=== PATIENT | male | born 1930 | race Caucasian/White ===

== ENCOUNTER 2016-10-19 10:11 | Emergency (ER) | payer OTHER, MEDICARE ==
[~2016-10-19 10:11] MED LIST: ALEVE220 MG PO; ASPIRIN ADULT L81 MG PO; CALCIUM PO; CIALIS5 MG; CVS OMEPRAZOLE20 MG; ENZYME DIGEST; FLOMAX0.4 MG PO; IPRATROPIUM BR0.02 %; MAGNESIUM PO; MEGA RED KRILL OIL PO; MULTI COMPLETE; PANTOPRAZOLE SO40 MG PO; PROSTATE SUPPORT; TRAMADOL HCL50 MG PO; VITAMIN B COMPLE1; VITAMIN D-31000 UNIT PO; [UNRECOGNIZED DRUG - OTHER]; [UNRECOGNIZED DRUG - OTHER] PO
--- NOTE | 2016-10-19 11:58 | ED NURSING NOTES ---
Clinical Report - Nurses Formerly [facility] [address] [place] [address] 10/19/2016 10:14 Patient: VIOLA GARCIA TRIAGE Triage time 10:Oct 19 2016. Acuity: LEVEL 3. Chief Complaint: SHORTNESS OF BREATH and COUGH. Alert. PATY COMA SCORE: [place] Coma Scale: 15- eyes open spontaneously (4); best verbal response- oriented x 4 (5); best motor response- obeys commands (6). --11:13 Faizan Garza R.N. 10:21 10/19/16. BP: 141/60. HR: 83. RR: 16. O2 saturation: 98% on room air. Temp: 98 F. Pain level now: 2/10. Additional comments: Rib pain from coughing. --11:13 Faizan Garza R.N. Weight: 90.7 kg stated. Height/Length: 69 inches Per Patient. BMI: 29.5. --10:23 Faizan Garza R.N. Medications Aspirin Oral (Tablet 81 mg) 1 tablet, daily. Flomax Oral (Capsule 0.4 mg), daily. Omeprazole Oral uncertain dose, daily. red krill (omega 3) one cap, daily. --10:26 Faizan Garza R.N. PredniSONE Oral 60 mg, daily. --10:26 Faizan Garza R.N. The following entry was struck and corrected by Faizan Garza R.N., 10:36 (10/19/16) Reason for correction - other(correction). <<STRICKEN ENTRY-- red krill (omega 3). --10:26 Faizan Garza R.N. --END STRIKE>> The following entry was struck and corrected by Faizan Garza R.N., 10:36 (10/19/16) Reason for correction - other(correction). <<STRICKEN ENTRY-- Omeprazole Oral. --10:26 Faizan Garza R.N. --END STRIKE>> The following entry was struck and corrected by Faizan Garza R.N., 10:35 (10/19/16) Reason for correction - other(correction). <<STRICKEN ENTRY-- Flomax Oral. --10:26 Faizan Garza R.N. --END STRIKE>> The following entry was struck and corrected by Faizan Garza R.N., 10:35 (10/19/16) Reason for correction - other(correction). <<STRICKEN ENTRY-- Aspirin Oral. --10:26 Faizan Garza R.N. --END STRIKE>>. Allergies None. --10:26 Faizan Garza R.N. Medication/allergy information source: the patient. --11:13 Faizan Garza R.N. History Arrived by private vehicle. Historian: patient. Accompanied by spouse. ( Cough for the last 4 days.). Onset. (about 4 days ago). He has had a cough. SOCIAL HX: Former smoker, end date 1989. 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 No drug use. No infectious disease exposure. ABUSE ASSESSMENT: No report of abuse. FALL RISK ASSESSMENT: Fall risk assessment completed. No fall risk identified. NUTRITIONAL RISK ASSESSMENT: The nutritional risk assessment revealed no deficiencies. FUNCTIONAL ASSESSMENT: Functional assessment: no impairments noted. LEARNING NEEDS ASSESSMENT: The learning needs assessment revealed no barriers. SKIN INTEGRITY ASSESSMENT: Skin integrity risk assessment completed. No skin integrity risk identified. --11:13 Faizan Garza R.N. PROBLEMS: Skin Avulsion. Puncture Wound. Constipation. UTI - Urinary Tract Infection. Gastroesophageal Reflux Disease. Bph. Chronic Back Pain. --10:30 Faizan Garza R.N. Bronchitis. --10:33 Faizan Garza R.N. Melanoma in situ of skin (clinical). --11:01 Faizan Garza R.N. ADDITIONAL SURGERIES: Bilat hip replacement. R shoulder. Spinal fusion. --10:30 Faizan Garza R.N. Bladder CA. Meanoma removal. --11:01 Faizan Garza R.N. Interventions ID band on patient. To treatment room. --11:13 Faizan Garza R.N. PHYSICAL ASSESSMENT GENERAL / NEURO / PSYCH: Alert. Oriented X 4. HEENT: Mucous membranes are pink. RESPIRATORY: No respiratory distress. Respirations not labored. CVS: Normal sinus rhythm noted. Capillary refill less than 2 seconds. GI / : Abdomen soft. Bowel sounds within normal limits. SKIN: Skin is warm and dry. Normal skin turgor. --11:02 Faizan Garza R.N. NURSING PROGRESS NOTES 10:54 10/19/2016 Albuterol Neb TX 1 unit dose given. --10:54 Cha Guerrier Monitoring of patient in place. Patient gowned. Reassurance given. Patient identifiers checked. Call light placed in reach. Side rails up. Bed placed in lowest position. Brakes of bed on. Patient ready for evaluation- chart flagged and ED physician notified. --11:02 Faizan Garza R.N. 10:48 10/19/2016 Site #1 started via IV in the right antecubital space with an 20g angiocath, with aseptic technique and good blood return; two attempts. Blood drawn: rainbow set. Labeled in the presence of the patient and sent to the lab. Saline lock flushed with 10 mL saline. --11:03 Faizan Garza R.N. 10:58 10/19/2016 Started bag #1 1000 mL IV Fluids IV NS (Saline); bolus of 250 mL over 15 minute(s) then at 250 mL/hr over 3 minute(s) via site #1 via IV pump. Allergies verified and confirmed 5 rights. IV patency established. IV site checked: no pain, redness, or swelling. IV flushed thoroughly pre- and post-medication administration. --11:13 Faizan Garza R.N. EKG time: (1043). EKG was ordered, performed by a tech and shown to the ED physician. --11:21 Marcos Jennings ER Tech1 11:15. Patient ID band checked for patient name and birthdate urine collected with return of bertha-colored clear urine; sample sent to lab for urinalysis and culture. Specimen labeled in the presence of the patient (pt voided 100cc via urinal at bedside. UA sent to lab). --11:26 Princess Rodgers R.N. 11:20 10/19/2016 IV Fluids IV NS via IV site #1 Rate Changed: bag #1 decreased to 250 mL/hr via IV pump. IV patency established. IV site checked: no pain, redness, or swelling. IV flushed thoroughly. --11:54 Princess Rodgers R.N. 11:00 10/19/16. BP: 129/52. HR: 80. RR: 16. O2 saturation: 96% on room air. --12:05 Faizan Garza R.N. 12:06 10/19/16. BP: 129/60. HR: 78. RR: 16. O2 saturation: 96%. Pain level now: 04/08. Additional comments: Rib Pain. --12:08 Faizan Garza R.N. 11:16 10/19/2016 IV Fluids IV NS via IV site #1 Rate Changed: bag #1 decreased to 250 mL/hr via IV pump. IV patency established. IV site checked: no pain, redness, or swelling. IV flushed thoroughly. Confirmed 5 Rights. --13:07 Faizan Garza R.N. 12:15 10/19/2016 Site #1 removed upon discharge. Catheter intact. Manual pressure, bandaid and bandage applied. --13:09 Faizan Garza R.N. 12:20 10/19/2016 IV Fluids IV NS Discontinued: bag #1 discontinued upon discharge. Total amount infused: 550 mL. IV patency established. IV site checked: no pain, redness, or swelling. IV flushed thoroughly. --13:08 Faizan Garza R.N. DISPOSITION / DISCHARGE 12:15 10/19/16. BP: 141/60. HR: 83. RR: 16. O2 saturation: 96%. Temp: 98 F. Pain level now: 04/08. Additional comments: rib pain. --12:52 Faizan Garza R.N. Departure time: 1220. --12:53 Faizan Garza R.N. 12:20. Condition at departure: improved. No learning barriers present. Discharge instructions provided and reviewed with the patient. Reviewed medication(s) side effects, precautions, dosing and course information (prescription given to pt). Reviewed referral to family practice. Patient verbalized understanding. Written instructions provided in Cypriot. The patient was discharged by the physician. He was discharged home and accompanied by spouse. He left the Emergency Department ambulatory and via private vehicle. Spouse driving. --12:56 Faizan Garza R.N. Locked/Released at 10/19/2016 13:10 by Faizan Garza R.N.
--- NOTE | 2016-10-19 11:58 | ED ORDER SUMMARY ---
..... Patient: VIOLA GARCIA OrderSheet [facility] VisitID: [id number] [place] [address] 86y, M Registration Date/Time: 10/19/2016 ORDER SHEET Weight: 90.7 kg (stated) Allergies: None GENERAL ORDERS: Chest 2V Urgent (10:33 10/19/2016 PHutchinson DO) (Ack 10:46 PWeiler ER Tech1) (12:17 PWeiler ER Tech1) Seismograph Operator (Continuous) (10:33 10/19/2016 PHutchinson DO) (10:38 JRomanelli R.N.) UA-Culture if indicated Urgent (10:34 10/19/2016 PHutchinson DO) (Ack 10:46 PWeiler ER Tech1) (11:23 PWeiler ER Tech1) Cardiac Panel Stat (10:10/19/2016 PHutchinson DO) (Ack 10:46 PWeiler ER Tech1) (11:14 JRomanelli R.N.) BNP Urgent (10:34 10/19/2016 PHutchinson DO) (Ack 10:46 PWeiler ER Tech1) (11:14 JRomanelli R.N.) Amylase Urgent (10:34 10/19/2016 PHutchinson DO) (Ack 10:46 PWeiler ER Tech1) (11:14 JRomanelli R.N.) Pulse oximeter (10:10/19/2016 PHutchinson DO) (10:38 JRomanelli R.N.) EKG - ER Stat (10:34 10/19/2016 PHutchinson DO) (10:46 PWeiler ER Tech1) Vitals (10:34 10/19/2016 PHutchinson DO) (11:14 JRomanelli R.N.) MEDICATION ORDERS: Albuterol Neb Tx 1 unit dose (NOW, HHN) (10:34 10/19/2016 PHutchinson DO) (10:54 KEpting) Nitrofurantoin PO 100 mg (NOW) (11:52 10/19/2016 PHutchinson DO) (Cancelled: Patient Left12:50 JRomanelli R.N.) IV FLUIDS: IV NS : initial bolus 250 mL (1000 mL/hr), then 250 mL/hr for X3 (NOW) (10:33 10/19/2016 Dorys HASSAN) (11:13 Axel Avelar) ORDER SHEET NOTES: [Electronically signed by Faizan Garza R.N. (13:10 10/19/2016)] [Electronically signed by Marcos Wooten DO (14:54 10/19/2016)] [Electronically locked/signed by Faizan Garza R.N. (13:10 10/19/2016)]
--- NOTE | 2016-10-19 11:58 | ED ORDER SUMMARY ---
..... Patient: VIOLA GARCIA OrderSheet [facility] VisitID: [id number] [place] [address] 86y, M Registration Date/Time: 10/19/2016 ORDER SHEET Weight: 90.7 kg (stated) Allergies: None GENERAL ORDERS: Chest 2V Urgent (10:33 10/19/2016 PHutchinson DO) (Ack 10:46 PWeiler ER Tech1) (12:17 PWeiler ER Tech1) Motor Vehicle Inspector (Continuous) (10:33 10/19/2016 PHutchinson DO) (10:38 JRomanelli R.N.) UA-Culture if indicated Urgent (10:34 10/19/2016 PHutchinson DO) (Ack 10:46 PWeiler ER Tech1) (11:23 PWeiler ER Tech1) Cardiac Panel Stat (10:10/19/2016 PHutchinson DO) (Ack 10:46 PWeiler ER Tech1) (11:14 JRomanelli R.N.) BNP Urgent (10:34 10/19/2016 PHutchinson DO) (Ack 10:46 PWeiler ER Tech1) (11:14 JRomanelli R.N.) Amylase Urgent (10:34 10/19/2016 PHutchinson DO) (Ack 10:46 PWeiler ER Tech1) (11:14 JRomanelli R.N.) Pulse oximeter (10:10/19/2016 PHutchinson DO) (10:38 JRomanelli R.N.) EKG - ER Stat (10:34 10/19/2016 PHutchinson DO) (10:46 PWeiler ER Tech1) Vitals (10:34 10/19/2016 PHutchinson DO) (11:14 JRomanelli R.N.) MEDICATION ORDERS: Albuterol Neb Tx 1 unit dose (NOW, HHN) (10:34 10/19/2016 PHutchinson DO) (10:54 KEpting) Nitrofurantoin PO 100 mg (NOW) (11:52 10/19/2016 PHutchinson DO) (Cancelled: Patient Left12:50 JRomanelli R.N.) IV FLUIDS: IV NS : initial bolus 250 mL (1000 mL/hr), then 250 mL/hr for X3 (NOW) (10:33 10/19/2016 Dorys HASSAN) (11:13 Axel Avelar) ORDER SHEET NOTES: [Electronically signed by Faizan Garza R.N. (13:10 10/19/2016)] [Electronically signed by Marcos Wooten DO (14:54 10/19/2016)] [Electronically locked/signed by Faizan Garza R.N. (13:10 10/19/2016)]
--- NOTE | 2016-10-19 11:58 | ED CLINICAL REPORT ---
Clinical Report - Physicians/Mid Levels [facility] [address] [place] [address] 10/19/2016 10:14 Patient: VIOLA GARCIA Time Seen: 10:25. Arrived- By private vehicle. Historian- patient and family. HISTORY OF PRESENT ILLNESS Chief Complaint: Cough. This started about 4 days ago and is still present. It was gradual in onset and has been waxing/waning. The dyspnea is described as moderate and is worsened by cough and is improved by rest. The patient has had a cough and mild dyspnea on exertion. No sputum production, wheezing, chest pain or discomfort or calf pain. No foot swelling. Similar symptoms previously: Recent medical care: The patient was seen recently in a clinic. Seen for similar symptoms. Diagnosis: viral illness. REVIEW OF SYSTEMS No muscle aches, nausea, vomiting, abdominal pain or bloody stools. No headache, fainting episodes, difficulty with urination, excessive urination or enlarged lymph nodes. He has had a nasal discharge, sinus drainage and a sore throat. He has had joint pain. Has had similar previous symptoms of joint pain. All systems otherwise negative, except as recorded above. PAST HISTORY PROBLEMS: Skin Avulsion. Puncture Wound. Constipation. UTI - Urinary Tract Infection. Gastroesophageal Reflux Disease. BPH. Bladder cancer Chronic Back Pain. Bronchitis. Melanoma in situ of skin (clinical). SURGERIES: Bilat hip replacement. R shoulder. Spinal fusion. Bladder CA. Meanoma remova. Medications: PredniSONE Oral 60 mg, daily. Aspirin Oral (Tablet 81 mg) 1 tablet, daily. Flomax Oral (Capsule 0.4 mg), daily. Omeprazole Oral uncertain dose, daily. red krill (omega 3) one cap, daily. Allergies: None. SOCIAL HISTORY Former smoker, end date 1989. Alcohol use. Patient is a recovering alcoholic. (sober for many years). No drug use. Is a local resident. Patient is employed. 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 ADDITIONAL NOTES The nursing notes have been reviewed. PHYSICAL EXAM Vital Signs: 10/19/2016 10:21 BP: 141/60. HR: 83. RR: 16. O2 saturation: 98%. Temp: 98 F. Pain level now: 05/09. Appearance: Alert. No acute distress. Eyes: Eyes normal inspection. No pale conjunctivae or scleral icterus. ENT: Uvula midline. No pharyngeal erythema. The mucous membranes are not dry. Neck: Normal inspection. No jugular venous distention. Neck supple. CVS: Normal heart rate and rhythm. Heart sounds normal. Pulses normal. Respiratory: No respiratory distress. Breath sounds normal. No decreased air movement, prolonged expiration, wheezes, stridor or rales. No rhonchi. Abdomen: Soft and nontender. No guarding or rebound tenderness. Back: Normal inspection. Skin: Skin warm and dry. Normal skin color. Normal skin turgor. Extremities: Bilateral mild edema of the lower extremities. Extremities exhibit normal ROM. No calf tenderness. Neuro: Oriented X 3. No motor deficit. No sensory deficit. LABS, X-RAYS, AND EKG EKG: EKG time: (10:43). Normal sinus rhythm. Rate: 80. Normal P waves. Normal VIJAYA. Normal QRS complex. Normal axis. Normal ST and T waves. The study has been interpreted contemporaneously by me. The EKG appears to be a good tracing. Rhythm Strip #1: Normal sinus rhythm. Regular rhythm. Narrow QRS complexes. No ectopy. Chest X-ray: No acute disease. Normal heart size. Mediastinum normal. Great vessels normal. No infiltrate. Views: PA and lateral. Technique: poor inspiration. The X-rays were interpreted contemporaneously by me. A comparison with prior films reveals that the findings are unchanged (similar to 11/2016; right shoulder surgery since). Laboratory Tests: UA-Culture if indicated: (JESS: 10/19/2016 11:15) ( MsgRcvd 10/19/2016 11:38) Final results Test Result Flag Units (Reference) URINE COLOR YELLOW URINE APPEARANCE CLEAR URINE GLUCOSE NEGATIVE (NEGATIVE) URINE BILIRUBIN NEGATIVE (NEGATIVE) URINE KETONE NEGATIVE (NEGATIVE) URINE SPECIFIC GRAVITY 1.020 (1.010-1.030) URINE PH 5.5 (5.0-8.0) URINE PROTEIN NEGATIVE (NEGATIVE) URINE UROBILINOGEN 0.2 EU/dL (0.2-1.0) URINE NITRITE NEGATIVE (NEGATIVE) URINE BLOOD TRACE-INTACT (NEGATIVE) URINE LEUK ESTERASE TRACE (NEGATIVE) URINE RBC 1-3 rbc/hpf (0-1) URINE WBC 3-5 wbc/hpf (0-1) URINE EPITHELIAL CELLS 1-3 EPI/hpf (0-5) URINE BACTERIA TRACE (<1+) (NONE SEEN) URINE COMMENT CULTURE INDICATED URINE CULTURES ARE SET-UP BASED ON THE FOLLOWING CRITERIA:POSITIVE NITRITEPOSITIVE LEUKOCYTE ESTERASEGREATER THAN 10 WHITE BLOOD CELLSMODERATE (2+) OR GREATER BACTERIA CBC w Diff: (JESS: 10/19/2016 10:35) ( [facility] 10/19/2016 11:07) Final results Test Result Flag Units (Reference) WHITE BLOOD COUNT 9.0 K/uL (4.5-11.5) RED BLOOD COUNT 4.32 L M/uL (4.50-5.90) HEMOGLOBIN 12.7 L gm/dL (13.5-17.5) HEMATOCRIT 36.9 L % (41.0-53.0) MEAN CELL VOLUME 85 fL (80-100) MEAN CORPUSCULAR HGB 29 pg (26-34) MEAN CORPUSCULAR HGB CONC 34 g/dL (31-37) RED CELL DISTRIBUTION WIDTH 14.6 % (11.6-14.8) PLATELET COUNT 311 K/uL (150-400) NEUTROPHIL % 57.8 % (50-75) LYMPH % 26.2 % (25-40) MONO % 10.6 % (3-14) EOSINOPHIL % 4.7 H % (0-4) BASOPHIL % 0.7 % (0-2) BNP: (JESS: 10/19/2016 10:35) ( [facility] 10/19/2016 11:28) Final results Test Result Flag Units (Reference) B-TYPE NATRIURETIC PEPTIDE 13.0 pg/ml (5-100) CHEM 13 PANEL: (JESS: 10/19/2016 10:35) ( [facility] 10/19/2016 11:15) Final results Test Result Flag Units (Reference) GLUCOSE 108 mg/dL (70-110) BUN 11 mg/dL (7-18) CREATININE 0.8 mg/dL (0.6-1.3) Estimated GFR >60 mL/min Estimated GFR- >60 mL/min Note: Persistent reduction over 3 months in eGFR<60 mL/min/1.73 m2 defines CKD. Patients with eGFR values>=60 mL/min/1.73 m2 may also have CKD if evidence ofpersistent proteinuria. Additional information may be foundat www.kidney.org. SODIUM 134 L mmol/L (136-145) POTASSIUM 4.1 mmol/L (3.5-5.1) CHLORIDE 99 mmol/L (98-107) CARBON DIOXIDE 27 mmol/L (21-32) CALCIUM 8.6 mg/dL (8.5-10.1) TOTAL PROTEIN 7.5 g/dL (6.4-8.2) ALBUMIN 3.5 g/dL (3.3-5.0) BILIRUBIN, TOTAL 0.9 mg/dL (0.0-1.0) ALKALINE PHOSPHATASE 69 U/L (46-116) AST (SGOT) 20 U/L (15-37) ALT (SGPT) 24 U/L (12-78) CPK 161 U/L (24-260) MAGNESIUM 1.7 L mg/dL (1.8-2.4) AMYLASE 50 U/L (25-115) TROPONIN I <0.05 L ng/mL (0.00-1.5) TROPONIN REFERENCE RANGE:<0.1 NEGATIVE0.1-1.5 INDETERMINANT>1.5 POSITIVE . Microbiology: Urine culture ordered. Pulse Oximetry: 10/19/2016 10:21 O2 saturation: 98%. (FIO2 - room air). Interpretation: normal. PROGRESS AND PROCEDURES Course of Care: Albuterol nebulizer treatment (1 unit dose) given by respiratory therapist. Nitrofurantoin 100 mg PO given. Patient is stable. Physical exam findings are improved. Symptoms much better. No evidence of serious cardiopulmonary disease now. Most c/w viral URI / bronchitis. Pt will need close outpatient follow up 10/19/2016 12:15 BP: 141/60. HR: 83. RR: 16. O2 saturation: 96%. Temp: 98 F. Pain level now: 04/08. Patient/family counseled. Old ED records reviewed. Disposition: Discharged. Condition: stable and improved. CLINICAL IMPRESSION Acute viral bronchitis. Acute viral (presumed) rhinitis and pharyngitis. INSTRUCTIONS Drink plenty of fluids. Other diet: Please be intentional about drinking water - it will help make your secretions thinner. Warnings: Further evaluation is necessary in order to obtain test results and conduct further tests. It is very important to follow up with a physician. CONTROLLED SUBSTANCE WARNINGS. GENERAL WARNINGS: Return or contact your physician immediately if your condition worsens or changes unexpectedly, if not improving as expected, or if other problems arise. Your Current Medications: CONTINUE TAKING THE FOLLOWING MEDICATIONS: Aspirin Oral : Tablet 81 mg, 1 tablet daily. Flomax Oral : Capsule 0.4 mg, daily. Omeprazole Oral : uncertain dose daily. PredniSONE Oral : 60 mg daily. red krill (omega 3)* : one cap daily. Prescription Medications: Hydrocodone/APAP 5mg / 325mg: take 1-2 orally every 12 hours as needed. Dispense five (5). No refill. Albuterol HFA oral inhaler: inhale 1 to 2 puffs every four to six hours as needed for difficulty breathing. Dispense one (1) unit. No refills. (with spacer) Nitrofurantoin 50 mg: Take 1 capsule orally every 6 hours for seven days. Dispense twenty-eight (28). No refills. Follow-up: Follow up with a urologist in about two days. Follow-up with: Tai Bobby MD, [facility], , [address], [place] [phone] Follow up in about three days. (Electronically signed by Marcos Wooten DO 10/19/2016 14:54)
--- NOTE | 2016-10-19 14:46 | DIAGNOSTIC IMAGING REPORT ---
PROCEDURE: XR CHEST 2 VIEW INDICATION: COUGH TECHNIQUE: Two views. COMPARISON: 12/13/2010 FINDINGS: Low lung volumes partially obscure the heart size. Given this, the cardiomediastinal contour is stable, within normal limits. The central vasculature is not congested. The visible lung paez are clear without focal consolidation, pleural effusion or pneumothorax. New right shoulder replacement , surgical clips in the right axilla, chronic. IMPRESSION: 1. Given low lung volumes, no evidence of acute cardiopulmonary disease. 2. New right shoulder replacement.
--- NOTE | 2016-10-19 14:54 | ED MED RECONCILIATION SUMMARY ---
Patient: VIOLA GARCIA Medication Reconciliation Report [facility] VisitID: [id number] [address] [place] [address] 86y, M Registration Date/Time: 10/19/2016 Weight: 90.7 kg Height/Length: 69 in. BMI: 29.5 ALLERGIES: None The patient's Home Medications are listed below: CONTINUE TAKING THE FOLLOWING MEDICATIONS: Aspirin Oral (81 mg) 1 tablet, daily Flomax Oral (0.4 mg), daily Omeprazole Oral uncertain dose, daily PredniSONE Oral 60 mg, daily red krill (omega 3) one cap, daily The source(s) of the original Home Medication information: patient The following Medications were given to the patient in the Emergency Department: Albuterol [Neb Tx] Neb TX 1 unit dose, administered: 10/19/2016 10:54:00 AM IV NS IV Fluids bolus 250 mL over 15 minute(s), then 250 mL/hr, administered: 10/19/2016 10:58:00 AM The following Medications were prescribed to the patient: Hydrocodone/APAP 5mg / 325mg: take 1-2 orally every 12 hours as needed. Dispense five (5). No refill. -- Marcos Wooten DO Albuterol HFA oral inhaler: inhale 1 to 2 puffs every four to six hours as needed for difficulty breathing. Dispense one (1) unit. No refills.(with spacer) -- Marcos Wooten DO Nitrofurantoin 50 mg: Take 1 capsule orally every 6 hours for seven days. Dispense twenty-eight (28). No refills. -- Marcos Wooten DO
--- NOTE | 2016-10-19 14:54 | ED MAR SUMMARY ---
..... Medication Administration Record [facility] [address] [place] [address] Patient: VIOLA GARCIA Visit ID: [id number] 86y, M Weight: 90.7 kg Height/Length: 69 in BMI: 29.5 ALLERGIES: None Given 10:54 10/19/2016 Cha Guerrier, Medication Administered: ALBUTEROL [NEB TX], Dose: 1 unit dose Neb TX. Medication Ordered: Albuterol Neb Tx 1 unit dose (NOW, HHN). Start 10:58 10/19/2016 Faizan Garza RHelgaN., Stop 12:20 10/19/2016 Faizan Garza RHelgaN. Medication Administered: IV NS (SALINE), Dose: IV Fluids over 3 minute(s), Rate: 250 mL/hr, Bolus: 250 mL over 15 minute(s), Dispensed: 1000 mL bag, Site: #1 right AC. Medication Ordered: IV NS : initial bolus 250 mL (1000 mL/hr), then 250 mL/hr for X3 (NOW).
--- NOTE | 2016-10-19 14:54 | ED DISCHARGE INSTRUCTIONS ---
Patient: VIOLA GARCIA General Instructions [facility]ly [facility] VisitID: [id number] [place] [address] 86y, M Registration Date/Time: 10/19/2016 Acute viral bronchitis. Acute viral (presumed) rhinitis and pharyngitis. INSTRUCTIONS Drink plenty of fluids. Other diet: Please be intentional about drinking water - it will help make your secretions thinner. Warnings: Further evaluation is necessary in order to obtain test results and conduct further tests. It is very important to follow up with a physician. CONTROLLED SUBSTANCE WARNINGS. GENERAL WARNINGS: Return or contact your physician immediately if your condition worsens or changes unexpectedly, if not improving as expected, or if other problems arise. Your Current Medications: CONTINUE TAKING THE FOLLOWING MEDICATIONS: Aspirin Oral : Tablet 81 mg, 1 tablet daily. Flomax Oral : Capsule 0.4 mg, daily. Omeprazole Oral : uncertain dose daily. PredniSONE Oral : 60 mg daily. red krill (omega 3)* : one cap daily. Prescription Medications: Hydrocodone/APAP 5mg / 325mg: take 1-2 orally every 12 hours as needed. Dispense five (5). No refill. Albuterol HFA oral inhaler: inhale 1 to 2 puffs every four to six hours as needed for difficulty breathing. Dispense one (1) unit. No refills. (with spacer) Nitrofurantoin 50 mg: Take 1 capsule orally every 6 hours for seven days. Dispense twenty-eight (28). No refills. Follow-up: Follow up with a urologist in about two days. Follow-up with: Tai Bobby MD, [facility], , [address], [place], [address] Follow up in about three days. ADDITIONAL INFORMATION Bronchitis, Viral (Adult: No Abx) You have a viral bronchitis. This illness is contagious during the first few days and is spread through the air by coughing and sneezing, or by direct contact (touching the sick person and then touching your own eyes, nose, or mouth). Most viral illnesses resolve within 10-14 days with rest and simple home remedies, although they may sometimes last for several weeks. Antibiotics will not kill a virus and are generally not prescribed for this condition. Home Care: If symptoms are severe, rest at home for the first 2-3 days. When resuming activity, don't let yourself become overly tired. Do not smoke and avoid the smoke of others. You may use acetaminophen (Tylenol) or ibuprofen (Motrin, Advil) to control fever or pain, unless another pain medicine was prescribed. [NOTE: If you have chronic liver or kidney disease or ever had a stomach ulcer or GI bleeding, talk with your doctor before using these medicines.] (Aspirin should never be used in anyone under 18 years of age who is ill with a fever. It may cause severe liver damage.) Your appetite may be poor so a light diet is fine. Avoid dehydration by drinking 6-8 glasses of fluids per day (water, sport drinks such as Gatorade, juices, tea, soup, etc.). Extra fluids will help loosen secretions in the nose and lung. Ghia-wpd-sadvoov cold medicines will not shorten the length of the illness, but may be helpful for cough (Robitussin DM), sore throat (Chloraseptic lozenges or spray), nasal and sinus congestion (Actifed or Sudafed). [NOTE: Do not use decongestants if you have high blood pressure.] Follow Up with your doctor or as directed by our staff if you are not improving over the next week. NOTE: If you are age 65 or older, or if you have chronic asthma or COPD, we recommend a PNEUMOCOCCAL VACCINATION every five years and a yearly INFLUENZAVACCINATION (FLU-SHOT) every . Ask your doctor about this. If you had an X-ray, a radiologist will review it. You will be notified of any new findings that may affect your care.] Get Prompt Medical Attention if any of the following occur: Fever over 100.4F (38.0C) for more than three days Trouble breathing, wheezing or pain with breathing Coughing up blood or increased amounts of colored sputum Weakness, drowsiness, headache, facial pain, ear pain or a stiff neck Viral Respiratory Illness [Adult] You have an Upper Respiratory Illness (URI) caused by a virus. This illness is contagious during the first few days. It is spread through the air by coughing and sneezing or by direct contact (touching the sick person and then touching your own eyes, nose or mouth). Most viral illnesses go away within 7-10 days with rest and simple home remedies. Sometimes, the illness may last for several weeks. Antibiotics will not kill a virus and are generally not prescribed for this condition. Home Care: 1) If symptoms are severe, rest at home for the first 2-3 days. When you resume activity, don't let yourself get too tired. 2) Avoid being exposed to cigarette smoke (yours or others). 3) Tylenol (acetaminophen) or ibuprofen (Advil, Motrin) will help fever, muscle aching and headache. (Persons under 18 with fever should not take aspirin since this may cause liver damage.) 4) Your appetite may be poor, so a light diet is fine. Avoid dehydration by drinking 6-8 glasses of fluids per day (water, soft drinks, juices, tea, soup). Extra fluids will help loosen secretions in the nose and lungs. 5) Vyib-vqm-vrvwmhn cold medicines will not shorten the length of time youre sick, but they may be helpful for the following symptoms: cough (Robitussin DM); sore throat (Chloraseptic lozenges or spray); nasal and sinus congestion (Actifed, Sudafed, Chlortrimeton). Follow Up with your doctor or as advised if you dont improve over the next week. Get Prompt Medical Attention if any of the following occur: -- Cough with lots of colored sputum (mucus) or blood in your sputum -- Chest pain, shortness of breath, wheezing or have trouble breathing -- Severe headache; face, neck or ear pain -- Fever over 100.4 F (38.0 C) for more than three days -- You cant swallow due to throat pain Hydrocodone Bitartrate, Acetaminophen Oral tablet What is this medicine? ACETAMINOPHEN; HYDROCODONE (a set a STEFANIE phi fen; van droe KOE done) is a pain reliever. It is used to treat mild to moderate pain. How should I use this medicine? Take this medicine by mouth. Swallow it with a full glass of water. Follow the directions on the prescription label. If the medicine upsets your stomach, take the medicine with food or milk. Do not take more than you are told to take. Talk to your [employer] group leader regarding the use of this medicine in children. This medicine is not approved for use in children. What side effects may I notice from receiving this medicine? Side effects that you should report to your doctor or health auto care center manager as soon as possible: allergic reactions like skin rash, itching or hives, swelling of the face, lips, or tongue breathing problems confusion feeling faint or lightheaded, falls stomach pain yellowing of the eyes or skin Side effects that usually do not require medical attention (report to your doctor or health auto care center manager if they continue or are bothersome): nausea, vomiting stomach upset What may interact with this medicine? alcohol antihistamines isoniazid medicines for depression, anxiety, or psychotic disturbances medicines for sleep muscle relaxants naltrexone narcotic medicines (opiates) for pain phenobarbital ritonavir tramadol What if I miss a dose? If you miss a dose, take it as soon as you can. If it is almost time for your next dose, take only that dose. Do not take double or extra doses. Where should I keep my medicine? Keep out of the reach of children. This medicine can be abused. Keep your medicine in a safe place to protect it from theft. Do not share this medicine with anyone. Selling or giving away this medicine is dangerous and against the law. Store at room temperature between 15 and 30 degrees C (59 and 86 degrees F). Protect from light. Keep container tightly closed. Throw away any unused medicine after the expiration date. Discard unused medicine and used packaging carefully. Pets and children can be harmed if they find used or lost packages. What should I tell my health care provider before I take this medicine? They need to know if you have any of these conditions: brain tumor Crohn's disease, inflammatory bowel disease, or ulcerative colitis drink more than 3 alcohol-containing drinks per day drug abuse or addiction head injury heart or circulation problems kidney disease or problems going to the bathroom liver disease lung disease, asthma, or breathing problems an unusual or allergic reaction to acetaminophen, hydrocodone, other opioid analgesics, other medicines, foods, dyes, or preservatives or trying to get breast-feeding What should I watch for while using this medicine? Tell your doctor or health auto care center manager if your pain does not go away, if it gets worse, or if you have new or a different type of pain. You may develop tolerance to the medicine. Tolerance means that you will need a higher dose of the medicine for pain relief. Tolerance is normal and is expected if you take the medicine for a long time. Do not suddenly stop taking your medicine because you may develop a severe reaction. Your body becomes used to the medicine. This does NOT mean you are addicted. Addiction is a behavior related to getting and using a drug for a non-medical reason. If you have pain, you have a medical reason to take pain medicine. Your doctor will tell you how much medicine to take. If your doctor wants you to stop the medicine, the dose will be slowly lowered over time to avoid any side effects. You may get drowsy or dizzy when you first start taking the medicine or change doses. Do not drive, use machinery, or do anything that may be dangerous until you know how the medicine affects you. Stand or sit up slowly. There are different types of narcotic medicines (opiates) for pain. If you take more than one type at the same time, you may have more side effects. Give your health care provider a list of all medicines you use. Your doctor will tell you how much medicine to take. Do not take more medicine than directed. Call emergency for help if you have problems breathing. The medicine will cause constipation. Try to have a bowel movement at least every 2 to 3 days. If you do not have a bowel movement for 3 days, call your doctor or health auto care center manager. Too much acetaminophen can be very dangerous. Do not take Tylenol (acetaminophen) or medicines that contain acetaminophen with this medicine. Many non-prescription medicines contain acetaminophen. Always read the labels carefully. Albuterol Sulfate Pressurized inhalation, suspension What is this medicine? ALBUTEROL (al BYOO ter ole) is a bronchodilator. It helps open up the airways in your lungs to make it easier to breathe. This medicine is used to treat and to prevent bronchospasm. How should I use this medicine? This medicine is for inhalation through the mouth. Follow the directions on your prescription label. Take your medicine at regular intervals. Do not use more often than directed. Make sure that you are using your inhaler correctly. Ask you doctor or health care provider if you have any questions. Talk to your river and [employer] group leader regarding the use of this medicine in children. Special care may be needed. What side effects may I notice from receiving this medicine? Side effects that you should report to your doctor or health auto care center manager as soon as possible: allergic reactions like skin rash, itching or hives, swelling of the face, lips, or tongue breathing problems chest pain feeling faint or lightheaded, falls high blood pressure irregular heartbeat fever muscle cramps or weakness pain, tingling, numbness in the hands or feet vomiting Side effects that usually do not require medical attention (report to your doctor or health auto care center manager if they continue or are bothersome): cough difficulty sleeping headache nervousness or trembling stomach upset stuffy or runny nose throat irritation unusual taste What may interact with this medicine? anti-infectives like chloroquine and pentamidine caffeine cisapride diuretics medicines for colds medicines for depression or for emotional or psychotic conditions medicines for weight loss including some herbal products methadone some antibiotics like clarithromycin, erythromycin, levofloxacin, and linezolid some heart medicines steroid hormones like dexamethasone, cortisone, hydrocortisone theophylline thyroid hormones What if I miss a dose? If you miss a dose, use it as soon as you can. If it is almost time for your next dose, use only that dose. Do not use double or extra doses. Where should I keep my medicine? Keep out of the reach of children. Store at room temperature between 15 and 30 degrees C (59 and 86 degrees F). The contents are under pressure and may burst when exposed to heat or flame. Do not freeze. This medicine does not work as well if it is too cold. Throw away any unused medicine after the expiration date. Inhalers need to be thrown away after the labeled number of puffs have been used or by the expiration date; whichever comes first. Ventolin HFA should be thrown away 12 months after removing from foil pouch. Check the instructions that come with your medicine. What should I tell my health care provider before I take this medicine? They need to know if you have any of the following conditions: diabetes heart disease or irregular heartbeat high blood pressure pheochromocytoma seizures thyroid disease an unusual or allergic reaction to albuterol, levalbuterol, sulfites, other medicines, foods, dyes, or preservatives or trying to get breast-feeding What should I watch for while using this medicine? Tell your doctor or health auto care center manager if your symptoms do not improve. Do not use extra albuterol. If your asthma or bronchitis gets worse while you are using this medicine, call your doctor right away. If your mouth gets dry try chewing sugarless gum or sucking hard candy. Drink water as directed. Nitrofurantoin, Nitrofurantoin, Macrocrystalline Oral capsule What is this medicine? NITROFURANTOIN (grey woods) is an antibiotic. It is used to treat urinary tract infections. How should I use this medicine? Take this medicine by mouth with a glass of water. Follow the directions on the prescription label. Take this medicine with food or milk. Take your doses at regular intervals. Do not take your medicine more often than directed. Do not stop taking except on your doctor's advice. Talk to your river and [employer] soundings group leader regarding the use of this medicine in children. While this drug may be prescribed for selected conditions, precautions do apply. What side effects may I notice from receiving this medicine? Side effects that you should report to your doctor or health auto care center manager as soon as possible: allergic reactions like skin rash or hives, swelling of the face, lips, or tongue chest pain cough difficulty breathing dizziness, drowsiness fever or infection joint aches or pains pale or blue-tinted skin redness, blistering, peeling or loosening of the skin, including inside the mouth tingling, burning, pain, or numbness in hands or feet unusual bleeding or bruising unusually weak or tired yellowing of eyes or skin Side effects that usually do not require medical attention (report to your doctor or health auto care center manager if they continue or are bothersome): dark urine diarrhea headache loss of appetite nausea or vomiting temporary hair loss What may interact with this medicine? antacids containing magnesium trisilicate probenecid quinolone antibiotics like ciprofloxacin, lomefloxacin, norfloxacin and ofloxacin sulfinpyrazone What if I miss a dose? If you miss a dose, take it as soon as you can. If it is almost time for your next dose, take only that dose. Do not take double or extra doses. Where should I keep my medicine? Keep out of the reach of children. Store at room temperature between 15 and 30 degrees C (59 and 86 degrees F). Protect from light. Throw away any unused medicine after the expiration date. What should I tell my health care provider before I take this medicine? They need to know if you have any of these conditions: anemia diabetes [id number] dehydrogenase deficiency kidney disease liver disease lung disease other chronic illness an unusual or allergic reaction to nitrofurantoin, other antibiotics, other medicines, foods, dyes or preservatives or trying to get breast-feeding What should I watch for while using this medicine? Tell your doctor or health auto care center manager if your symptoms do not improve or if you get new symptoms. Drink several glasses of water a day. If you are taking this medicine for a long time, visit your doctor for regular checks on your progress. If you are diabetic, you may get a false positive result for sugar in your urine with certain brands of urine tests. Check with your doctor. You have been given the following additional information: Bronchitis, No Antibiotic (Adult) Uri, Viral, No Abx (Adult) Hydrocodone Bitartrate, Acetaminophen Oral tablet Albuterol Sulfate Pressurized inhalation, suspension Nitrofurantoin, Nitrofurantoin, Macrocrystalline Oral capsule (Electronically signed by Marcos Wooten DO 10/19/2016 14:54)
--- NOTE | 2016-10-19 14:54 | ED MAR SUMMARY ---
..... Medication Administration Record [facility] [address] [place] [address] Patient: VIOLA GARCIA Visit ID: [id number] 86y, M Weight: 90.7 kg Height/Length: 69 in BMI: 29.5 ALLERGIES: None Given 10:54 10/19/2016 Cha Guerrier, Medication Administered: ALBUTEROL [NEB TX], Dose: 1 unit dose Neb TX. Medication Ordered: Albuterol Neb Tx 1 unit dose (NOW, HHN). Start 10:58 10/19/2016 Faizan Garza RHelgaN., Stop 12:20 10/19/2016 Faizan Garza RHelgaN. Medication Administered: IV NS (SALINE), Dose: IV Fluids over 3 minute(s), Rate: 250 mL/hr, Bolus: 250 mL over 15 minute(s), Dispensed: 1000 mL bag, Site: #1 right AC. Medication Ordered: IV NS : initial bolus 250 mL (1000 mL/hr), then 250 mL/hr for X3 (NOW).
--- NOTE | 2016-10-19 14:54 | ED MED RECONCILIATION SUMMARY ---
Patient: VIOLA GARCIA Medication Reconciliation Report [facility] VisitID: [id number] [address] [place] [address] 86y, M Registration Date/Time: 10/19/2016 Weight: 90.7 kg Height/Length: 69 in. BMI: 29.5 ALLERGIES: None The patient's Home Medications are listed below: CONTINUE TAKING THE FOLLOWING MEDICATIONS: Aspirin Oral (81 mg) 1 tablet, daily Flomax Oral (0.4 mg), daily Omeprazole Oral uncertain dose, daily PredniSONE Oral 60 mg, daily red krill (omega 3) one cap, daily The source(s) of the original Home Medication information: patient The following Medications were given to the patient in the Emergency Department: Albuterol [Neb Tx] Neb TX 1 unit dose, administered: 10/19/2016 10:54:00 AM IV NS IV Fluids bolus 250 mL over 15 minute(s), then 250 mL/hr, administered: 10/19/2016 10:58:00 AM The following Medications were prescribed to the patient: Hydrocodone/APAP 5mg / 325mg: take 1-2 orally every 12 hours as needed. Dispense five (5). No refill. -- Marcos Wooten DO Albuterol HFA oral inhaler: inhale 1 to 2 puffs every four to six hours as needed for difficulty breathing. Dispense one (1) unit. No refills.(with spacer) -- Marcos Wooten DO Nitrofurantoin 50 mg: Take 1 capsule orally every 6 hours for seven days. Dispense twenty-eight (28). No refills. -- Marcos Wooten DO
== END 2016-10-19 12:20 | disposition home or self-care (01) ==
LOC: ED SRH 10:11
DX: J20.8 Acute bronchitis due to other specified organisms (principal); J02.9 Acute pharyngitis, unspecified; J00 Acute nasopharyngitis [common cold]; K21.9 Gastro-esophageal reflux disease without esophagitis; Z79.82 Long term (current) use of aspirin; Z79.899 Other long term (current) drug therapy; Z87.891 Personal history of nicotine dependence
CPT/HCPCS: 90004; 90100; 90469; 90616; 91320; 92530; 92610; 92720; 95059